=== PATIENT | female | born 1995 | race Caucasian/White ===

== ENCOUNTER → 2018-06-01 | Outpatient (CLI) | payer OTHER | LOC: BMCIMAGING 13:47 | PROVIDERS: ATTEND Family Medicine | DX: S62.636A Displaced fracture of distal phalanx of right little finger, initial encounter for closed fracture (principal) ==

== ENCOUNTER → 2018-06-23 | Outpatient (CLI) | payer OTHER | LOC: BMCIMAGING 10:44 | PROVIDERS: ATTEND Physician Assistant | DX: S62.667D Nondisplaced fracture of distal phalanx of left little finger, subsequent encounter for fracture with routine healing (principal) ==